=== PATIENT | female | born 1985 | race Asian ===

== ENCOUNTER 2019-12-31 15:58 | Emergency (ER) | payer OTHER ==
[2019-12-31 16:53] LABS: ABS Eosinophils 0.1 10^3/ul (0-0.6); ABS Lymphocytes 1.9 10^3/ul (1.0-4.8); ABS Monocytes 0.4 10^3/ul (0-0.8); Eosinophil % 1.8 %; Hematocrit 41 % (35-47); Hemoglobin 13.9 g/dL (12.0-16.0); Lymphocyte % 29.2 %; Mean Corpuscular HGB Conc 34 g/dL (31-36); Mean Corpuscular Hemoglobin 30 pg (27-31); Mean Corpuscular Volume 89 fL (80-97); Mean Platelet Volume 8.4 fL (7.4-10.4); Nucleated Red Blood Cells % 0.1; Platelet Count 266 10^3/uL (150-450); Red Blood Count 4.62 10^6 /uL (3.70-4.87); Red Cell Distribution Width 13 % (10-15); White Blood Count 6.4 10^3/uL (3.5-10.8)
[2019-12-31 17:07] LABS: INR 1.23 (0.82-1.09)
[2019-12-31 17:15] LABS: HCG Pregnancy < 0.60 mIU/mL
[2019-12-31 17:35] LABS: ALT 15 U/L (7-52); AST 15 U/L (13-39); Albumin 4.6 g/dL (3.2-5.2); Albumin/Globulin Ratio 1.6 (1-3); Alkaline Phosphatase 50 U/L (34-104); Anion Gap 10 mmol/L (2-11); BUN/Creatinine Ratio 13.7 (8-20); Blood Urea Nitrogen 10 mg/dL (6-24); CO2 Carbon Dioxide 23 mmol/L (22-32); Calcium 9.5 mg/dL (8.6-10.3); Chloride 106 mmol/L (101-111); EGFR African American 110.4 (>60); EGFR Non-African American 91.3 (>60); Globulin 2.8 g/dL (2-4); Glucose 106 mg/dL (70-100); Potassium 3.9 mmol/L (3.5-5.0); Sodium 139 mmol/L (135-145); Total Protein 7.4 g/dL (6.4-8.9)
--- NOTE | 2019-12-31 22:36 | ED ---
Palpitations / Dysrhythmia - HPI Summary HPI Summary: 34 year old F arriving via private car to [facility] complains of fatigue, tachycardia, diaphoretic palms, chills, shortness of breath, cough since today . Patient developed cough last Saturday 12/23. She stayed home from work until Thursday 12/28. Returned to work Friday 12/29 and was feeling fine. Today at work, she developed fatigue, tachycardia, diaphoretic palms, chills, shortness of breath, cough. She drank juice and felt better but she still has shortness of breath, cough, fatigue. Called her sister who wanted patient to go to the ED. Was brought to the ED by her coworker. Patient denies decreased appetite, fever. Symptoms aggravated by nothing. Symptoms alleviated by nothing. No recent travel outside of [place]. She states she takes the bus to work. Medications reviewed. Allergies noted. FHx cardiac disease. Home Medications Medication Instructions Recorded Confirmed Type Multivitamin [Multivitamins] 1 tab PO DAILY 12/31/19 12/31/19 History - History of Current Complaint Chief Complaint: EDDysrhythmPalp Time Seen by Provider: 12/31/19 22:29 Hx Obtained From: Patient Onset/Duration: Lasting Hours, Still Present Timing: Constant Severity Currently: None Aggravating: Nothing Alleviating: Nothing - Allergy/Home Medications Allergies/Adverse Reactions: Allergies Allergy/AdvReac Type Severity Reaction Status Date / Time aspirin Allergy Anaphylatic Verified 12/31/19 22:45 Shock Penicillins Allergy Anaphylatic Verified 12/31/19 22:45 Shock Home Medications: Home Medications Multivitamin [Multivitamins] 1 tab PO DAILY 12/31/19 [History Confirmed 12/31/19 ] Azithromycin TAB* [Zithromax TAB (Z-ELVIA) 250 mg #6 tabs] 2 tab PO .TODAY, THEN 1 DAILY #1 elvia 01/01/20 [Rx] PMH/Surg Hx/FS Hx/Imm Hx Respiratory History: Reports: Hx Asthma Sensory History: Reports: Hx Contacts or Glasses Opthamlomology History: Reports: Hx Contacts or Glasses - Surgical History Surgical History: None Infectious Disease History: No Infectious Disease History: Denies: Traveled Outside the [place] in Last 30 Days - Family History Known Family History: Positive: Cardiac Disease - Social History Alcohol Use: None Substance Use Type: Reports: None Hx Tobacco Use: No Smoking Status (MU): Never Smoked Tobacco Review of Systems Positive: Chills, Fatigue, Skin Diaphoresis. Negative: Fever Positive: Other - tachycardia Positive: Shortness Of Breath Gastrointestinal: Negative - decreased appetite All Other Systems Reviewed And Are Negative: Yes Physical Exam - Summary Physical Exam Summary: Appearance: Well-appearing, Well-nourished, lying in bed comfortably Skin: Warm, dry, no obvious rash Eyes: sclera anicteric, no conjunctival pallor HENT: mucous membranes moist, pharynx appears normal Neck: Supple, nontender Respiratory: Clear to auscultation, no signs of respiratory distress Cardiovascular: Normal S1, S2. No murmurs. Normal distal pulses in tibial and radial bilaterally. Abdomen: Soft, nontender, normal active bowel sounds present Musculoskeletal: Normal, Strength/ROM Intact Neurological: A&Ox3, awake and alert, mentation is normal, speech is fluent and appropriate Psychiatric: affect is normal, does not appear anxious or depressed Triage Information Reviewed: Yes Vital Signs On Initial Exam: Initial Vitals Temp Pulse Resp BP Pulse Ox 98.1 F 70 18 125/65 99 12/31/19 16:10 12/31/19 16:10 12/31/19 16:10 12/31/19 16:10 12/31/19 16:10 Vital Signs Reviewed: Yes Procedures - Sedation Patient Received Moderate/Deep Sedation with Procedure: No Diagnostics - Vital Signs Vital Signs Temp Pulse Resp BP Pulse Ox 12/31/19 22:00 98.3 F 65 18 139/94 100 12/31/19 19:59 98.7 F 59 16 116/70 99 12/31/19 18:01 98.6 F 72 18 114/68 98 12/31/19 16:10 98.1 F 70 18 125/65 99 - Laboratory Lab Results: Lab Results 12/31/19 12/31/19 12/31/19 Range/Units 16:33 16:33 16:33 WBC 6.4 (3.5-10.8) 10^3/uL RBC 4.62 (3.70-4.87) 10^6 /uL Hgb 13.9 (12.0-16.0) g/dL Hct 41 (35-47) % MCV 89 (80-97) fL MCH 30 (27-31) pg MCHC 34 (31-36) g/dL RDW 13 (10-15) % Plt Count 266 (150-450) 10^3/uL MPV 8.4 (7.4-10.4) fL Neut % (Auto) 62.5 % Lymph % (Auto) 29.2 % [place] % (Auto) 5.9 % Eos % (Auto) 1.8 % Baso % (Auto) 0.6 % Absolute Neuts (auto) 4.0 (1.5-7.7) 10^3/ul Absolute Lymphs (auto) 1.9 (1.0-4.8) 10^3/ul Absolute Monos (auto) 0.4 (0-0.8) 10^3/ul Absolute Eos (auto) 0.1 (0-0.6) 10^3/ul Absolute Basos (auto) 0.0 (0-0.2) 10^3/ul Absolute Nucleated RBC 0.0 10^3/ul Nucleated RBC % 0.1 INR (Anticoag Therapy) 1.23 H (0.82-1.09) Sodium 139 (135-145) mmol/L Potassium 3.9 (3.5-5.0) mmol/L Chloride 106 (101-111) mmol/L Carbon Dioxide 23 (22-32) mmol/L Anion Gap 10 (2-11) mmol/L BUN 10 (6-24) mg/dL Creatinine 0.73 (0.51-0.95) mg/dL Est GFR ( Amer) 110.4 (>60) Est GFR (Non-Af Amer) 91.3 (>60) BUN/Creatinine Ratio 13.7 (8-20) Glucose 106 H (70-100) mg/dL Calcium 9.5 (8.6-10.3) mg/dL Total Bilirubin 0.40 (0.2-1.0) mg/dL AST 15 (13-39) U/L ALT 15 (7-52) U/L Alkaline Phosphatase 50 (34-104) U/L Troponin I 0.00 (<0.03) ng/mL Total Protein 7.4 (6.4-8.9) g/dL Albumin 4.6 (3.2-5.2) g/dL Globulin 2.8 (2-4) g/dL Albumin/Globulin Ratio 1.6 (1-3) Beta HCG, Quant < 0.60 mIU/mL 12/31/19 Range/Units 19:21 WBC (3.5-10.8) 10^3/uL RBC (3.70-4.87) 10^6 /uL Hgb (12.0-16.0) g/dL Hct (35-47) % MCV (80-97) fL MCH (27-31) pg MCHC (31-36) g/dL RDW (10-15) % Plt Count (150-450) 10^3/uL MPV (7.4-10.4) fL Neut % (Auto) % Lymph % (Auto) % [place] % (Auto) % Eos % (Auto) % Baso % (Auto) % Absolute Neuts (auto) (1.5-7.7) 10^3/ul Absolute Lymphs (auto) (1.0-4.8) 10^3/ul Absolute Monos (auto) (0-0.8) 10^3/ul Absolute Eos (auto) (0-0.6) 10^3/ul Absolute Basos (auto) (0-0.2) 10^3/ul Absolute Nucleated RBC 10^3/ul Nucleated RBC % INR (Anticoag Therapy) (0.82-1.09) Sodium (135-145) mmol/L Potassium (3.5-5.0) mmol/L Chloride (101-111) mmol/L Carbon Dioxide (22-32) mmol/L Anion Gap (2-11) mmol/L BUN (6-24) mg/dL Creatinine (0.51-0.95) mg/dL Est GFR ( Amer) (>60) Est GFR (Non-Af Amer) (>60) BUN/Creatinine Ratio (8-20) Glucose (70-100) mg/dL Calcium (8.6-10.3) mg/dL Total Bilirubin (0.2-1.0) mg/dL AST (13-39) U/L ALT (7-52) U/L Alkaline Phosphatase (34-104) U/L Troponin I 0.00 (<0.03) ng/mL Total Protein (6.4-8.9) g/dL Albumin (3.2-5.2) g/dL Globulin (2-4) g/dL Albumin/Globulin Ratio (1-3) Beta HCG, Quant mIU/mL Result Diagrams: 12/31/19 16:33 12/31/19 16:33 Lab Statement: Any lab studies that have been ordered have been reviewed, and results considered in the medical decision making process. - Radiology CXR Radiology Interpretation Completed By: ED Physician - No acute process. Pending official report. - EKG 1604 Summary of EKG Findings: NSR at 82 BPM, P waves, QRS complex, and T waves are within normal limits, T waves and intervals are normal, no ischemic changes. This is a normal EKG. ED physician has reviewed and interpreted this EKG. Course/Dx - Course Course Of Treatment: 34 y/o F c/o fatigue, tachycardia, diaphoretic palms, chills, shortness of breath, cough starting today at work. No fever. Patient had similar cough last week which improved after she rested for several days. She went to work yesterday and today. Physical exam unremarkable. Bloodwork results with no significant abnormalities. EKG is normal. CXR shows no acute process. Patient likely has an upper respiratory infection. Patient will be discharged home with follow up from her primary care provider. Patient was instructed to return to Emergency Department for new or worsening symptoms. Patient understands and is agreeable to this plan. - Diagnoses Provider Diagnoses: Upper respiratory infection Discharge ED - Sign-Out/Discharge Documenting (check all that apply): Patient Departure - Discharge Plan Condition: Good Disposition: HOME Prescriptions: Azithromycin TAB* [Zithromax TAB (Z-ELVIA) 250 mg #6 tabs] 2 tab PO .TODAY, THEN 1 DAILY #1 elvia Patient Education Materials: Upper Respiratory Infection (ED) Referrals: Dominique Llamas MD [Primary Care Provider] - - Billing Disposition and Condition Condition: GOOD Disposition: Home - Attestation Statements Document Initiated by Scribe: Yes Documenting Scribe: Mariola Lawson Provider For Whom Kay is Documenting (Include Credential): Jass Joya MD Scribe Attestation: Mariola Perla scribed for Jass Joya MD on 01/02/20 at 0221. Scribe Documentation Reviewed: Yes Provider Attestation: The documentation as recorded by the Mariola boudreaux accurately reflects the service I personally performed and the decisions made by me, Jass Joya MD Status of Scribe Document: Viewed
[2020-01-01 00:37] VITALS: BP 109/77
--- NOTE | 2020-01-01 07:55 | ED ---
Imaging and Labs Follow Up Follow Up Type: Imaging Imaging Result: IMPRESSION: #. Mild inflammatory infiltrate or atelectasis at the RIGHT lung base. #. Results discussed with PA. Benoit at 01/01/2020 7:49 AM EDT R2 Preliminary Imaging Read R2 <Electronically signed by Rob Niño MD in [place]> 01/01/20748 Dictated By: Rob Niño MD Dictated Date/Time: 01/01/20745 Transcribed Date/Time: 01/01/20745 Copy to: Patient Communication/Plan: Pt. seen with cough, chills, SOB. Attempted to call pt. today at 1210 with no answer. Rx for zithromax sent to pharmacy. Will send letter. Provider Diagnoses: Upper respiratory infection
== END 2020-01-01 00:37 | disposition home or self-care (01) ==
LOC: ED 15:58
DX: J06.9 Acute upper respiratory infection, unspecified (principal); R06.02 Shortness of breath; Z88.0 Allergy status to penicillin; Z88.6 Allergy status to analgesic agent
CPT/HCPCS: 36415; 71046; 80053; 84484; 84702; 85025; 85610; 93005; 99283